=== PATIENT | male | born 1955 | race Caucasian/White ===

== ENCOUNTER 2019-04-08 11:00 | Outpatient (RCR) | payer MEDICARE, SELFPAY ==
[2019-04-08 10:57] VITALS: BMI 52.9
== END 2019-06-01 23:59 | disposition home or self-care (01) ==
LOC: ANHDMC 11:00
PROVIDERS: PCP Internal Medicine; Visit Provider Internal Medicine
DX: E11.65 Type 2 diabetes mellitus with hyperglycemia (principal); Z71.89 Other specified counseling; Z71.3 Dietary counseling and surveillance
CPT/HCPCS: 97803; G0108; G0109

== ENCOUNTER 2019-07-06 10:06 | Outpatient (RCR) | payer MEDICARE, SELFPAY | END 2019-10-04 23:59 | disposition home or self-care (01) | LOC: ANHDMC 10:06 | PROVIDERS: PCP Internal Medicine; Visit Provider Internal Medicine | DX: E11.65 Type 2 diabetes mellitus with hyperglycemia (principal); Z71.89 Other specified counseling | CPT/HCPCS: G0108 ==

== ENCOUNTER 2020-05-31 11:26 | Emergency (ER) | payer OTHER, MEDICARE, SELFPAY ==
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
[2020-05-31 11:35] VITALS: BP 205/78; PULSE 77; RESP 16; TEMP 36.3; O2SAT 97
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
[2020-05-31] MEDS: DEXAMETHASONE SOD PHOS INJ 4 MG/ML VIAL 10 MG IM (12:22)
[2020-05-31] MEDS: KETOROLAC (*BKC) 60 MG/2 ML VIAL IM (12:22)
[2020-05-31] MEDS: methocarbamoL 750 MG TABLET PO (12:23)
[2020-05-31 13:10] VITALS: BP 132/78; PULSE 70; RESP 18; O2SAT 99
== END 2020-05-31 13:13 | disposition home or self-care (01) ==
LOC: ANHED 12:54
PROVIDERS: Emergency Provider Emergency Medicine; PCP Internal Medicine
DX: M54.12 Radiculopathy, cervical region (principal); V43.52XA Car driver injured in collision with other type car in traffic accident, initial encounter; E11.9 Type 2 diabetes mellitus without complications; I10 Essential (primary) hypertension
CPT/HCPCS: 70450; 72125; 96372; 99284; A9270; J1100; J1885

== ENCOUNTER → 2020-07-08 13:07 | Outpatient (CLI) | payer MEDICARE, SELFPAY ==
--- NOTE | ~2020-07-08 | XR_ITS ---
XR shoulder LT min 2V 07/08/2020 13:23 Indication: Left shoulder pain Procedure: 5 views left shoulder Comparison: No prior studies for comparison. Findings: No acute fracture or traumatic malalignment. There is mild osteoarthritis of the glenohumer al and acromioclavicular joints. No significant soft tissue abnormality. Surrounding osseous structur es and soft tissues are unremarkable. No foreign bodies. Impression: 1: Mild polyarticular osteoarthritis. Reviewed, dictated and finalized at location [facility]. TESTER Impression: 1: Mild polyarticular osteoarthritis.
== END ==
PROVIDERS: PCP Internal Medicine; Visit Provider Internal Medicine
DX: M19.012 Primary osteoarthritis, left shoulder (principal)
CPT/HCPCS: 73030

== ENCOUNTER 2020-09-06 16:16 | Emergency (ER) | payer MEDICARE, SELFPAY ==
[2020-09-06 16:20] VITALS: BP 219/109; PULSE 93; RESP 16; TEMP 36.6; O2SAT 97
[2020-09-06 16:56] LABS: Basophils Percent Auto 0.3 % (0.2-1.2); Eosinophils Absolute Auto 0.1 K/mm3 (0-0.3); Eosinophils Percent Auto 1.6 % (0-4.4); Hematocrit 47.1 % (42.0-52.0); Hemoglobin 16.2 g/dL (14.0-18.0); Immature Granulocyte Absolute 0.03 K/mm3 (0.00-0.031); Immature Granulocyte Percent A 0.3 % (0-0.5); Lymphocytes Absolute Auto 2.45 K/mm3 (0.9-3.2); Lymphocytes Percent Auto 27.6 % (18.3-44.2); Mean Corpuscular HGB Conc 34.4 g/dl (32-36); Mean Corpuscular Hemoglobin 29.9 pg (26-34); Mean Corpuscular Volume 86.9 fl (80-100); Mean Platelet Volume 9.5 fl (7.4-10.4); Monocytes Absolute Auto 0.6 K/mm3 (0.1-0.6); Monocytes Percent Auto 7.1 % (2.6-8.5); Neutrophils Absolute Auto 5.6 K/mm3 (1.3-6.7); Neutrophils Percent Auto 63.1 % (45.5-73.1); Platelet Count Result 306 k/mm3 (150-375); Red Blood Count 5.42 M/mm3 (4.6-6.20); Red Cell Distribution Width 12.3 % (11.5-14.5); White Blood Count 8.9 K/mm3 (4.5-10.0)
[2020-09-06 17:05] LABS: Alanine Aminotransferase 42 U/L (4-50); Albumin Level 4.4 g/dL (3.5-5.1); Alkaline Phosphatase 136 U/L (38-126); Anion Gap 9 mmol/L (8-16); Aspartate Amino Transferase 28 U/L (17-59); Bilirubin,Total 0.4 mg/dL (0.2-1.3); Blood Urea Nitrogen 11 mg/dL (9-20); Calcium 9.9 mg/dL (8.4-10.2); Carbon Dioxide 27 mmol/L (22-30); Chloride 98 mmol/L (98-107); Estimated CRCL calculation 115 ml/min; Estimated Glomerular Filt Rate > 60; Glucose 456 mg/dL (75-110); Potassium 3.9 mmol/L (3.4-5.0); Sodium 134 mmol/L (137-145)
[2020-09-06 17:07] LABS: Add Urine Microscopic? YES; Appearance Urine Clear (Clear); Bilirubin Urine Negative (Negative); Blood Urine Negative (Negative); Color Urine Straw (Yellow); Glucose Urine UA 3+ mg/dL (Negative); Ketones Urine Negative (Negative); Leukocyte Esterase Ur Negative LEU/UL (Negative); Nitrate Urine Negative (Negative); Protein Urine 1+ mg/dL (Negative); Specific Grav Ur 1.029 (1.001-1.035); Urobilinogen Urine Negative mg/dL (<2.0); WBC Urine 0-3 /hpf
[2020-09-06 17:22] LABS: Ethanol < 10 mg/dL (<10)
--- NOTE | 2020-09-06 17:30 | PC.NURSE ---
PT LOW RISK ON [place] SC[facility]. DR SEVILLA HAS EVALUATED THE PT AND WISHES HIM TO STILL HAVE A SITTER UNTIL CRISIS HAS A CHANCE TO EVALUATE HIM.
[2020-09-06 17:48] LABS: Amphetamine Screen Urine Negative (Negative); Barbiturate Screen Urine Negative (Negative); Benzodiazepines Screen Urine Negative (Negative); Cannabinoid Screen Urine Negative (Negative); Cocaine Screen Urine Negative (Negative); Methadone Screen Urine Negative (Negative); Opiate Screen Urine Negative (Negative); Phencyclidine Screen Urine Negative (Negative)
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
--- NOTE | 2020-09-06 20:01 | PC.NURSE ---
CRISIS is completed with her interview. Pt remains calm and cooperative.
--- NOTE | 2020-09-06 20:20 | PC.NURSE ---
Pt given back his personal belongings and [employer], metal framed eyeglasses are found to be bent and one of the lens is out. explosive operator supervisor notified and given pt contact information. Eyeglasses are able to be bent back into a useable position and lens is put back into place.
[2020-09-06 20:22] VITALS: BP 179/88; PULSE 82; RESP 20; O2SAT 98
== END 2020-09-06 20:24 | disposition home or self-care (01) ==
PROVIDERS: Emergency Provider Emergency Medicine; PCP Internal Medicine
DX: F32.9 Major depressive disorder, single episode, unspecified (principal); M54.5 Low back pain; G89.29 Other chronic pain; I10 Essential (primary) hypertension; E11.9 Type 2 diabetes mellitus without complications
CPT/HCPCS: 36415; 80053; 80307; 81001; 84443; 85025; 99284

== ENCOUNTER 2020-12-07 08:56 | Outpatient (CLI) | payer MEDICARE, SELFPAY ==
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
== END 2020-12-07 08:57 ==
PROVIDERS: PCP Internal Medicine; Visit Provider Nurse Practitioner Family
DX: M47.896 Other spondylosis, lumbar region (principal)
CPT/HCPCS: 72148